=== PATIENT | female | born 1940 | race Caucasian/White ===

== ENCOUNTER 2018-01-04 19:23 | Emergency (ER) | payer OTHER ==
[~2018-01-04] VITALS: Ht 157.5 cm; Wt 78.5 kg
[2018-01-04 19:27] VITALS: Ht 157.5 cm; Wt 78.5 kg
[2018-01-04 20:58] VITALS: BP 130/75
== END 2018-01-04 20:58 | disposition home or self-care (01) ==
LOC: ED 19:23
DX: I82.432 Acute embolism and thrombosis of left popliteal vein (principal); I10 Essential (primary) hypertension; M19.90 Unspecified osteoarthritis, unspecified site; E66.9 Obesity, unspecified; Z90.49 Acquired absence of other specified parts of digestive tract; Z88.0 Allergy status to penicillin; Z88.5 Allergy status to narcotic agent